=== PATIENT | male | born 1965 | race Caucasian/White ===

== ENCOUNTER 2022-01-06 10:49 | Emergency (ER) | payer MEDICAID ==
[~2022-01-06] VITALS: Ht 170.2 cm; Wt 64.0 kg
[~2022-01-06 10:49] MED LIST: ALBU18HF2 INH; BECL7.3A7 IH; DIVA-76 PO; KEP500T PO; TOPI200T16 PO
[2022-01-06 10:51] VITALS: BP 106/61
[2022-01-06] MEDS ORDERED: apixaban 5mg tablet PO STA (11:57)
[2022-01-06] MEDS ORDERED: Ivermectin 3mg tablet PO STA (11:59)
[2022-01-06] MEDS ORDERED: PERM60CR19 TOP (12:02)
[2022-01-06] MEDS ORDERED: APIX5TAB3 PO ×2 (12:02)
== END 2022-01-06 12:58 | disposition home or self-care (01) ==
LOC: ER 10:50
DX: I82.431 Acute embolism and thrombosis of right popliteal vein (principal); J44.9 Chronic obstructive pulmonary disease, unspecified; Z88.0 Allergy status to penicillin; Z88.8 Allergy status to other drugs, medicaments and biological substances
CPT/HCPCS: 93971; 99284

== ENCOUNTER 2022-02-08 23:43 | Inpatient (IN) | payer MEDICAID ==
[~2022-02-08] VITALS: Ht 170.2 cm; Wt 68.1 kg
[~2022-02-08 23:43] MED LIST changes: +APIX5TAB3 PO
[2022-02-09] VITALS (15 sets, daily range): BP systolic 94–131; BP diastolic 51–85
[2022-02-09] MEDS ORDERED: aspirin 81mg tab.chew PO ONE (01:05)
[2022-02-09] MEDS ORDERED: heparin 25,000 UNIT/250ml bag 250 ML IV SCH (01:10)
[2022-02-09] MEDS ORDERED: albuterol 2.5 MG/3 ML nebule NEB ONE (01:10)
[2022-02-09] MEDS ORDERED: heparin 10,000 units/1 ML INJ IV ONE ×2 (01:10→02:25)
[2022-02-09] MEDS ORDERED: methylPREDNISolone sod succ 125mg/2ml vial IV ONE (01:10)
[2022-02-09] MEDS ORDERED: iohexol 350MG/ML 100ml bottle IV ONE (01:16)
[2022-02-09] MEDS ORDERED: APIX5TAB3 PO (01:16)
[2022-02-09] MEDS ORDERED: ATOR20TA66 PO (01:16)
[2022-02-09 01:17] LABS: BASOPHILS # (AUTO) 0.1 X10'3 (0-0.2); EOSINOPHILS # (AUTO) 0.5 X10'3 (0-0.9); WHITE BLOOD COUNT 11.4 X10'3 (4.5-11.0)
[2022-02-09] MEDS ORDERED: BECL10.6 IH (01:18)
[2022-02-09 01:19] LABS: EOSINOPHILS % (AUTO) 4.1 % (0-6); LYMPHOCYTES # (AUTO) 1.6 X10'3 (1.1-4.8); MEAN CORPUSCULAR HEMOGLOBIN 12.4 PG (27.0-31.0); MEAN CORPUSCULAR HGB CONC 24.4 g/dL (33.0-36.5); MEAN CORPUSCULAR VOLUME 50.9 FL (78-98); MEAN PLATELET VOLUME 8.1 FL (7.4-10.4); MONOCYTES # (AUTO) 1.3 X10'3 (0-0.9); MONOCYTES % (AUTO) 11.2 % (2-12); NEUTROPHILS # (AUTO) 7.9 X10'3 (1.8-7.7); NEUTROPHILS % (AUTO) 69.7 % (42-75); PLATELET COUNT 733 X10'3 (140-440); RED BLOOD COUNT 2.84 X10'6 (4.70-6.10); RED CELL DISTRIBUTION WIDTH 25.8 % (11.5-14.5)
[2022-02-09 01:36] LABS: APTT 21 SECONDS (22-32)
[2022-02-09 01:37] LABS: ALANINE AMINOTRANSFERASE 161 U/L (12-78); ALBUMIN/GLOBULIN RATIO 0.7 (1.1-1.5); ALKALINE PHOSPHATASE 62 IU/L (46-116); ANION GAP 15 (8-16); ASPARTATE AMINO TRANSFERASE 89 U/L (10-37); BILIRUBIN,TOTAL 0.3 MG/DL (0.1-1.0); BLOOD UREA NITROGEN 6 MG/DL (7-18); BUN/CREATININE RATIO 6.3 (5.4-32.0); CHLORIDE 101 MMOL/L (99-107); CREATININE 0.96 MG/DL (0.60-1.10); GLUCOSE 130 MG/DL (70-104); POTASSIUM 3.6 MMOL/L (3.5-5.1); SODIUM 137 MMOL/L (135-145); TOTAL CARBON DIOXIDE 20.6 MMOL/L (24-32); TOTAL PROTEIN 7.3 G/DL (6.4-8.2); eGFR 80 ML/MIN
[2022-02-09 01:46] LABS: HEMATOCRIT 14.5 % (42.0-52.0); HEMOGLOBIN 3.5 g/dl (14.0-17.9)
[2022-02-09] MEDS ORDERED: heparin 10,000 units/1 ML INJ IV PRN (02:25)
[2022-02-09] MEDS: heparin 25,000 UNIT/250ml bag 250 ML IV SCH (02:25)
[2022-02-09] MEDS ORDERED: acetaminophen 650mg rectal suppository RC PRN (02:35)
[2022-02-09] MEDS ORDERED: mag hydrox/Alum hydrox/simeth 30ml oral suspension PO PRN (02:35)
[2022-02-09] MEDS ORDERED: naloxone 0.4 mg/ml inj IV PRN (02:35)
[2022-02-09] MEDS ORDERED: ondansetron/PF 4mg/2ml inj IV PRN (02:35)
[2022-02-09] MEDS ORDERED: ondansetron 4mg rapidly disintigrating tab PO PRN (02:35)
[2022-02-09] MEDS ORDERED: magnesium hydroxide 30ml (MOM) UD suspension PO PRN (02:35)
[2022-02-09] MEDS ORDERED: diphenhydrAMINE 25mg capsule PO PRN (02:35)
[2022-02-09] MEDS ORDERED: bisacodyl 10mg suppository rectal RC PRN (02:35)
[2022-02-09] MEDS ORDERED: acetaminophen 325mg tablet PO PRN ×2 (02:35)
[2022-02-09] MEDS ORDERED: HYDROcodone/acetaminophen 5mg/325mg tablet PO PRN (02:35)
[2022-02-09] MEDS ORDERED: diphenhydrAMINE 50 mg/ml inj IV PRN (02:35)
[2022-02-09] MEDS ORDERED: albuterol 2.5 MG/3 ML nebule NEB PRN (03:05)
[2022-02-09 03:27] LABS: ABSOLUTE RETICS # 80200 /CUMM (23000-93000); RETICULOCYTE % (AUTO) 2.8 % (0.5-1.5)
[2022-02-09] MEDS: normal saline 1000ml 1,000 ML IV SCH ×2 (03:31→14:14)
[2022-02-09] MEDS: ipratropium/albuterol 3ml nebule NEB SCH ×6 (03:32→22:51)
[2022-02-09 03:33] LABS: NUCLEATED RED BLOOD CELLS 3 /100WBC (0-0); TOTAL CELLS COUNTED 100
[2022-02-09 03:34] LABS: ANISOCYTOSIS 3+; ELLIPTOCYTES 1+; HYPOCHROMASIA 2+; MICROCYTOSIS 3+; PLATELET ESTIMATE INCREASED
[2022-02-09 03:35] LABS: ACANTHOCYTES FEW; POLYCHROMASIA FEW; SCHISTOCYTES FEW; TEAR DROP CELLS FEW
[2022-02-09 04:03] LABS: PHOSPHORUS 2.7 MG/DL (2.3-4.5)
[2022-02-09 04:10] LABS: MAGNESIUM 2.1 MG/DL (1.5-2.4)
[2022-02-09] MEDS ORDERED: normal saline 1000ml 1,000 ML IV ONE (05:45)
[2022-02-09 06:00] LABS: HEMOGLOBIN A1C < 3.8 % (4.5-6.2)
[2022-02-09] MEDS: docusate sod 100mg capsule PO SCH ×2 (08:00→20:00)
[2022-02-09] MEDS ORDERED: levoFLOXACIN-Levaquin 750MG/D5 150 ML IV SCH (08:00)
[2022-02-09] MEDS ORDERED: pantoprazole 40MG/NS 100ML BAG 100 ML IV SCH (08:00)
[2022-02-09] MEDS: methylPREDNISolone sod succ 125mg/2ml vial IV SCH ×2 (08:49→20:27)
[2022-02-09 09:36] LABS: OCCULT BLOOD STOOL NEGATIVE (Neg)
[2022-02-09 09:37] LABS: URINE AMPHETAMINE SCREEN NEGATIVE (Neg); URINE BARBITUATE SCREEN NEGATIVE (Neg); URINE BENZODIAZEPINES SCREEN NEGATIVE (Neg); URINE CANNABINOID SCREEN NEGATIVE (Neg); URINE COCAINE SCREEN NEGATIVE (Neg); URINE METHADONE SCREEN NEGATIVE (Neg); URINE OPIATE SCREEN NEGATIVE (Neg); URINE PHENCYCLIDINE SCREEN NEGATIVE (Neg)
[2022-02-09 09:41] LABS: BASOPHILS # (AUTO) 0.2 X10'3 (0-0.2); EOSINOPHILS # (AUTO) 0.1 X10'3 (0-0.9); MEAN PLATELET VOLUME 8.1 FL (7.4-10.4); NEUTROPHILS # (AUTO) 7.9 X10'3 (1.8-7.7)
[2022-02-09 09:43] LABS: EOSINOPHILS % (AUTO) 1.4 % (0-6); LYMPHOCYTES # (AUTO) 0.8 X10'3 (1.1-4.8); LYMPHOCYTES % (AUTO) 8.4 % (21-51); MEAN CORPUSCULAR HEMOGLOBIN 16.1 PG (27.0-31.0); MEAN CORPUSCULAR HGB CONC 27.5 g/dL (33.0-36.5); MEAN CORPUSCULAR VOLUME 58.5 FL (78-98); MONOCYTES # (AUTO) 0.3 X10'3 (0-0.9); MONOCYTES % (AUTO) 2.8 % (2-12); NEUTROPHILS % (AUTO) 85.4 % (42-75); PLATELET COUNT 575 X10'3 (140-440); RED BLOOD COUNT 3.38 X10'6 (4.70-6.10); RED CELL DISTRIBUTION WIDTH 35.4 % (11.5-14.5); WHITE BLOOD COUNT 9.2 X10'3 (4.5-11.0)
[2022-02-09 09:46] LABS: HEMOGLOBIN 5.4 g/dl (14.0-17.9)
[2022-02-09 09:55] LABS: % IRON SATURATION 3 % (11-46); IRON 11 UG/DL (53-167); TOTAL IRON BINDING CAPACITY 372 UG/DL (259-388)
[2022-02-09 10:09] LABS: HEMATOCRIT 18.1 % (42.0-52.0)
[2022-02-09 10:30] LABS: HIV ANTIBODY 1&2 RAPID NON-REACTIVE (Neg)
[2022-02-09 10:53] LABS: ANISOCYTOSIS 3+; HYPOCHROMASIA 3+; PLATELET ESTIMATE INCREASED; TEAR DROP CELLS 1+
[2022-02-09 10:54] LABS: ELLIPTOCYTES FEW; LARGE PLATELETS FEW; POLYCHROMASIA 1+; SCHISTOCYTES 1+
[2022-02-09 10:55] LABS: MICROCYTOSIS 3+
[2022-02-09] MEDS ORDERED: NS IV SCH (11:05)
[2022-02-09] MEDS ORDERED: OCTREOTIDE IV SCH (11:05)
[2022-02-09] MEDS ORDERED: octreotide 100mcg/1 ml ampule IV ONE (11:05)
[2022-02-09] MEDS ORDERED: OCTREOTIDE 1,250 MCG in NS 250ml IV.SOLN IV SCH (11:10)
--- NOTE | 2022-02-09 11:49 | NUR ---
TC TO YESSICA RANDALL FOR DIAMOND MONTANO (SIG OTHER). MESSAGE LEFT WITH [employer] THAT DIANNA IS HERE AT [facility] ER AND THE PHYSICAL FITNESS TEACHER WILL INFORM DIAMOND OF HIS PRESENCE IN THE ER.
--- NOTE | 2022-02-09 13:19 | NUR ---
TC FROM PATIENT'S , DIAMOND MONTANO, FOR CONDITION REPORT. ALL QUESTIONS ANSWERED.
[2022-02-09 15:08] LABS: MEAN PLATELET VOLUME 8.1 FL (7.4-10.4); PLATELET COUNT 591 X10'3 (140-440); WHITE BLOOD COUNT 8.7 X10'3 (4.5-11.0)
[2022-02-09 15:24] LABS: MEAN CORPUSCULAR HEMOGLOBIN 18.2 PG (27.0-31.0); MEAN CORPUSCULAR HGB CONC 29.4 g/dL (33.0-36.5); RED BLOOD COUNT 3.39 X10'6 (4.70-6.10); RED CELL DISTRIBUTION WIDTH 36.9 % (11.5-14.5)
[2022-02-09 15:29] LABS: HEMOGLOBIN 6.2 g/dl (14.0-17.9)
[2022-02-09] MEDS: pantoprazole 40MG/NS 100ML BAG 100 ML IV SCH ×2 (16:00→22:00)
[2022-02-09 20:18] LABS: MEAN PLATELET VOLUME 8.1 FL (7.4-10.4); PLATELET COUNT 619 X10'3 (140-440); WHITE BLOOD COUNT 8.3 X10'3 (4.5-11.0)
[2022-02-09] MEDS ORDERED: nicotine 21mg patch - 24 hr TD ONE (20:20)
--- NOTE | 2022-02-09 20:20 | NUR ---
Patient very aggitated says "Im going stir crazy, just laying here. I need to get a room or a smoke". Per Dr. Harman ok to order Nicotiene patch 21mg Q24hrs.
[2022-02-09] MEDS: morphine 2 MG/ML inj. syringe IV PRN (20:28)
[2022-02-09 20:46] LABS: HEMOGLOBIN 8.4 g/dl (14.0-17.9); MEAN CORPUSCULAR HEMOGLOBIN 18.9 PG (27.0-31.0); MEAN CORPUSCULAR HGB CONC 31.1 g/dL (33.0-36.5); MEAN CORPUSCULAR VOLUME 60.9 FL (78-98); RED BLOOD COUNT 4.44 X10'6 (4.70-6.10); RED CELL DISTRIBUTION WIDTH 37.4 % (11.5-14.5)
--- NOTE | 2022-02-09 20:55 | NUR ---
Patient continues to melt down, says he cannot continue to stare at the green, has no TV and no company.
[2022-02-09] MEDS ORDERED: temazepam 15mg capsule PO PRN (21:00)
--- NOTE | 2022-02-10 00:39 | NUR ---
Patient requesting breathing treatment, page sent.
[2022-02-10] MEDS: pantoprazole 40MG/NS 100ML BAG 100 ML IV SCH ×5 (01:00→21:00)
[2022-02-10] MEDS: heparin 25,000 UNIT/250ml bag 250 ML IV SCH (01:09)
[2022-02-10] MEDS: ipratropium/albuterol 3ml nebule NEB SCH ×6 (01:59→23:24)
--- NOTE | 2022-02-10 03:40 | NUR ---
Patient struggling, very SOB and wheezing. I ordered a stat CXR and cld Dr. Harman. Per MD get an ABG, CXR and give 40mg Laxix IV now.
[2022-02-10] MEDS: morphine 2 MG/ML inj. syringe IV PRN (03:49)
[2022-02-10] MEDS ORDERED: furosemide 40mg/4ml inj IV ONE (03:55)
[2022-02-10] MEDS ORDERED: morphine 2 MG/ML inj. syringe IV ONE (04:00)
[2022-02-10 04:12] LABS: ABG BASE EXCESS -7.4 mmol/L (-2.0-2.0); ABG HCO3 18.1 mmol/L (22.0-26.0); ABG OXYGEN SATURATION 84.1 % (94-97); ABG PCO2 (T) 36.4 mmHg (35.0-48.0); ABG PO2 (T) 53.3 mmHg (75.0-100.0); ALLEN'S TEST POSITIVE; FCOHb 1.1 % (0.0-3.9); FLOW 8 L/min; FMetHb 0.3 % (0.0-1.5); FO2Hb 82.9 % (94-97); TOTAL HEMOGLOBIN 9.1 G/dl (14.0-18.0)
--- NOTE | 2022-02-10 05:19 | NUR ---
Went to check on patient as SpO2 was down in the 70's, found he had taken O2 off. I counseled him on the importance of leaving his O2 on and advised him of what could happen in his O2 sat was too low. O2 back on and SpO2 is 98 now.
--- NOTE | 2022-02-10 07:00 | NUR ---
Pt sitting up in bed, pale, dry, RR 20s, SOB on NRB. Pt states he feels ok. Calling report to floor.
--- NOTE | 2022-02-10 07:40 | NUR ---
Went to pt to take him to the floor, and pt was cool, pale, diaphoretic, tachy 140s, on NRB. Pt states he doesn't feel any worse, just "takes a while to recover after he moves." Admitting doc paged.
--- NOTE | 2022-02-10 07:49 | NUR ---
Received patient report from ACOUSTIC INTELLIGENCE SPECIALIST
--- NOTE | 2022-02-10 07:50 | NUR ---
RT at bedside for breathing tx
[2022-02-10] MEDS: docusate sod 100mg capsule PO SCH ×2 (08:00→20:00)
[2022-02-10] MEDS ORDERED: furosemide 40mg/4ml inj IV SCH (08:00)
--- NOTE | 2022-02-10 08:05 | NUR ---
RT reports this pt is going to crash shortly. Recommends BiPAP or Intubation. Paged Rosalio.
--- NOTE | 2022-02-10 08:12 | NUR ---
Spoke to Dr Santamaria. He deferred repiratory assessment and treatment to Dr. Marroquin for possible BiPAP vs Intubation per RT recommendation.
[2022-02-10] MEDS ORDERED: albuterol 2.5 MG/3 ML nebule CONTNEB PRN ×2 (08:15)
[2022-02-10] MEDS ORDERED: ipratropium 0.5 MG/2.5ML nebule IH ONE (08:15)
--- NOTE | 2022-02-10 08:26 | NUR ---
RT placed pt on BiPAP 12/ Rate 12. No skin issues noted on bridge of nose before applying mask. on 60% O2 via mask.
[2022-02-10 08:35] LABS: ALANINE AMINOTRANSFERASE 137 U/L (12-78); ALBUMIN 3.3 G/DL (3.4-5.0); ALBUMIN/GLOBULIN RATIO 0.7 (1.1-1.5); ALKALINE PHOSPHATASE 72 IU/L (46-116); ANION GAP 10 (8-16); ASPARTATE AMINO TRANSFERASE 46 U/L (10-37); BLOOD UREA NITROGEN 8 MG/DL (7-18); BUN/CREATININE RATIO 7.6 (5.4-32.0); CALCIUM 8.1 MG/DL (8.5-10.1); CHLORIDE 107 MMOL/L (99-107); CHOL/HDL RATIO 2.7 (0.00-4.99); CHOLESTEROL 83 MG/DL (0-200); CREATINE KINASE 416 U/L (39-308); CREATININE 1.05 MG/DL (0.60-1.10); GLUCOSE 207 MG/DL (70-104); HDL CHOLESTEROL 31 MG/DL (35-60); LDL CHOLESTEROL 43 MG/DL (50-100); MAGNESIUM 2.4 MG/DL (1.5-2.4); POTASSIUM 4.4 MMOL/L (3.5-5.1); SODIUM 140 MMOL/L (135-145); TOTAL CARBON DIOXIDE 23.3 MMOL/L (24-32); TOTAL PROTEIN 8.2 G/DL (6.4-8.2); TRIGLYCERIDES 81 MG/DL (20-135); eGFR 73 ML/MIN
[2022-02-10] MEDS: levoFLOXACIN-Levaquin 500mg/D5 100 ML IV SCH (08:45)
[2022-02-10] MEDS: methylPREDNISolone sod succ 125mg/2ml vial IV SCH ×2 (08:45→20:06)
--- NOTE | 2022-02-10 08:49 | NUR ---
Pt resting more comfortably. Not diaphoretic. On BiPAP, tolerating procedure well. RR 24-26 down from 35-37. Sats 95% on 60% O2.
[2022-02-10] MEDS: cefepime 1GM/NS ADD-VANTAGE 100 ML IV SCH ×2 (09:00→16:46)
[2022-02-10] MEDS: metroNIDAZOLE-Flagyl 500mg/NS 100 ML IV SCH ×2 (09:00→16:27)
[2022-02-10] MEDS ORDERED: furosemide 10 MG/1 ML 10ml inj IV ONE (09:00)
[2022-02-10] MEDS ORDERED: metoprolol tartrate 1mg/ml inj IV ONE (09:05)
[2022-02-10 09:07] LABS: EOSINOPHILS % (AUTO) 0 % (0-6)
[2022-02-10 09:09] LABS: BASOPHILS % (AUTO) 0.3 % (0-1); LYMPHOCYTES # (AUTO) 0.6 X10'3 (1.1-4.8); LYMPHOCYTES % (AUTO) 3.4 % (21-51); MEAN PLATELET VOLUME 8.3 FL (7.4-10.4); MONOCYTES # (AUTO) 2.2 X10'3 (0-0.9); MONOCYTES % (AUTO) 12.6 % (2-12); NEUTROPHILS # (AUTO) 14.5 X10'3 (1.8-7.7); NEUTROPHILS % (AUTO) 83.7 % (42-75); PLATELET COUNT 694 X10'3 (140-440); RED BLOOD COUNT 4.68 X10'6 (4.70-6.10); WHITE BLOOD COUNT 17.3 X10'3 (4.5-11.0)
[2022-02-10 09:37] LABS: ABG BASE EXCESS -6.7 mmol/L (-2.0-2.0); ABG HCO3 19.1 mmol/L (22.0-26.0); ABG OXYGEN SATURATION 94.6 % (94-97); ABG PCO2 (T) 39.1 mmHg (35.0-48.0); ABG PO2 (T) 77.9 mmHg (75.0-100.0); ALLEN'S TEST POSITIVE; FCOHb 0.8 % (0.0-3.9); FMetHb 0.2 % (0.0-1.5); FO2Hb 93.7 % (94-97); RESPIRATORY RATE 12 b/min; TOTAL HEMOGLOBIN 9.3 G/dl (14.0-18.0)
[2022-02-10 09:56] LABS: HEMATOCRIT 28.4 % (42.0-52.0); HEMOGLOBIN 8.5 g/dl (14.0-17.9); MEAN CORPUSCULAR HEMOGLOBIN 18.4 PG (27.0-31.0); MEAN CORPUSCULAR HGB CONC 29.8 g/dL (33.0-36.5); MEAN CORPUSCULAR VOLUME 61.9 FL (78-98); RED CELL DISTRIBUTION WIDTH 36.3 % (11.5-14.5)
--- NOTE | 2022-02-10 10:20 | NUR ---
Call out to explosives truck driver to clarify order for 3 antbiotics. Pt already received Levquin 500mg, and now has Vanco, Flagyl and cefepime ordered.
--- NOTE | 2022-02-10 10:31 | NUR ---
Pt states BiPAP machine is making it hard to breathe and wants it off. Will page RT
--- NOTE | 2022-02-10 10:39 | NUR ---
Spoke to telecommunications field engineer. Will hold Maxipime and give Vancomycin and Flagyl
[2022-02-10] MEDS: vancomycin/NS 1 GM ADD-VANTAGE 250 ML IV SCH ×2 (10:46→23:11)
[2022-02-10] MEDS ORDERED: morphine 2 MG/ML inj. syringe IV PRN (11:00)
[2022-02-10] MEDS ORDERED: potassium Cl 20mEq/100mL bag 100 ML IV PRN (11:00)
[2022-02-10] MEDS ORDERED: ipratropium/albuterol 3ml nebule NEB SCH (11:00)
[2022-02-10] MEDS ORDERED: magnesium 4gm in 100ml NS 100 ML IV PRN (11:00)
[2022-02-10] MEDS ORDERED: acetaminophen 325mg tablet PO PRN ×2 (11:00)
[2022-02-10] MEDS ORDERED: ipratropium/albuterol 3ml nebule NEB PRN (11:00)
[2022-02-10] MEDS ORDERED: potassium CL 10mEq/100ml bag 100 ML IV PRN (11:00)
[2022-02-10] MEDS ORDERED: magnesium 2GM in 50ml NS 50 ML IV PRN (11:00)
[2022-02-10] MEDS ORDERED: potassium Cl 20 mEq SR tablet PO PRN ×2 (11:00)
[2022-02-10] MEDS ORDERED: ondansetron/PF 4mg/2ml inj IV PRN (11:00)
--- NOTE | 2022-02-10 11:37 | NUR ---
Pt resting comfortably, no apparent distress or needs at this time. On BiPAP. 2 L NS started for Lactate of 4 with verbal orders.
--- NOTE | 2022-02-10 12:09 | NUR ---
Flagyl complete, Pt resting comfortably, denies pain or needs at this time. Updated on wait for bed. Stable on BiPAP.
[2022-02-10 12:14] LABS: NUCLEATED RED BLOOD CELLS 6 /100WBC (0-0); TOTAL CELLS COUNTED 100
[2022-02-10 12:15] LABS: GIANT PLATELET FEW; LARGE PLATELETS FEW; PLATELET ESTIMATE INCREASED; POIKILOCYTOSIS 2+
[2022-02-10 12:16] LABS: ANISOCYTOSIS 3+; HYPOCHROMASIA 1+; MICROCYTOSIS 2+; POLYCHROMASIA 2+; SCHISTOCYTES 1+
[2022-02-10 12:17] LABS: ACANTHOCYTES FEW; TEAR DROP CELLS 1+
[2022-02-10] MEDS: K and/or MAG REPLACEMENT MC SCH (12:26)
[2022-02-10] MEDS ORDERED: dexmedetomidin/NS 400mcg/100ml 100 ML IV SCH (12:50)
[2022-02-10] MEDS: propranolol 10mg tablet PO SCH ×2 (13:00→20:10)
[2022-02-10] MEDS: dexmedetomidine/D5W 100mL 100 ML IV SCH (13:14)
--- NOTE | 2022-02-10 13:15 | NUR ---
Pt sleeping, no apparent distress or needs at this time.
[2022-02-10 13:47] LABS: CLARITY,URINE CLEAR (Clear); COLOR,URINE YELLOW (Yellow); GLUCOSE, URINE NEGATIVE (Neg); KETONES,URINE NEGATIVE (Neg); LEUKOCYTE ESTERASE ,URINE NEGATIVE (Neg); NITRITES, URINE NEGATIVE (Neg); OCCULT BLOOD,URINE NEGATIVE (Neg); PH,URINE 5.5 (4.8-8.0); PROTEIN,URINE NEGATIVE (Neg); UROBILINOGEN,URINE 0.2 E.U/dL (0.2-1.0)
[2022-02-10 14:00] LABS: UA COLLECTION TYPE URINAL
--- NOTE | 2022-02-10 14:30 | NUR ---
Pt sleeping, no apparent distress or needs at this time.
--- NOTE | 2022-02-10 15:30 | NUR ---
CT called. has 2 pts ahead of him, will come get him shortly.
--- NOTE | 2022-02-10 16:22 | NUR ---
Called ICU, bed is being cleaned. Will notify us when ready.
[2022-02-10] MEDS ORDERED: iohexol 300mg/ml 100ml inj. ONE (16:34)
--- NOTE | 2022-02-10 16:47 | NUR ---
Pt sleeping, no apparent distress or needs at this time. On BiPAP 16/5 @ 50% O2.
--- NOTE | 2022-02-10 17:05 | NUR ---
Report given to Fabiola in ICU. PT to go to CT enroute to ICU.
--- NOTE | 2022-02-10 17:54 | NUR ---
Received pt. from ED via peewee. Pt. hooked up to monitor, call light and warm blanket provided. Will give report to DAVID RN.
[2022-02-10 17:55] VITALS: BP 110/80
--- NOTE | 2022-02-10 18:19 | NUR ---
Problems reprioritized. Patient report given, questions answered & plan of care reviewed with Fausto JEAN-BAPTISTE.
[2022-02-10 19:00] VITALS: BP 111/82
[2022-02-10 19:23] LABS: MEAN CORPUSCULAR HEMOGLOBIN 18.9 PG (27.0-31.0)
[2022-02-10 19:24] LABS: RED BLOOD COUNT 3.94 X10'6 (4.70-6.10); WHITE BLOOD COUNT 10.4 X10'3 (4.5-11.0)
[2022-02-10] MEDS: furosemide 10 MG/1 ML 10ml inj IV SCH (20:06)
[2022-02-10 20:10] LABS: HEMATOCRIT 23.9 % (42.0-52.0); HEMOGLOBIN 7.3 g/dl (14.0-17.9); MEAN CORPUSCULAR VOLUME 61.5 FL (78-98)
[2022-02-10 20:11] LABS: MEAN CORPUSCULAR HGB CONC 30.7 g/dL (33.0-36.5); RED CELL DISTRIBUTION WIDTH 37.5 % (11.5-14.5)
[2022-02-10 20:12] LABS: PLATELET COUNT 410 X10'3 (140-440)
[2022-02-10 21:00] VITALS: BP 114/80
--- NOTE | 2022-02-10 21:10 | NUR ---
Pt sent to CT with charge nurse and RT.
[2022-02-10 22:00] VITALS: BP 108/72
--- NOTE | 2022-02-10 22:22 | NUR ---
Called Dr Gonzales with H/H results,vital signs, and pt assessment. No blood transfusion or new orders at this time. Will re-assess at next H/H check.
[2022-02-10 23:00] VITALS: BP 100/70
[2022-02-11] VITALS (15 sets, daily range): BP systolic 90–115; BP diastolic 59–79
[2022-02-11] MEDS: cefepime 1GM/NS ADD-VANTAGE 100 ML IV SCH ×2 (00:42→07:21)
[2022-02-11] MEDS: pantoprazole 40MG/NS 100ML BAG 100 ML IV SCH ×5 (01:25→21:00)
[2022-02-11] MEDS: metroNIDAZOLE-Flagyl 500mg/NS 100 ML IV SCH ×3 (01:25→18:57)
[2022-02-11] MEDS: ipratropium/albuterol 3ml nebule NEB SCH ×6 (02:48→23:45)
[2022-02-11 02:50] LABS: MEAN PLATELET VOLUME 7.9 FL (7.4-10.4)
[2022-02-11 02:51] LABS: PLATELET COUNT 350 X10'3 (140-440); WHITE BLOOD COUNT 11.8 X10'3 (4.5-11.0)
[2022-02-11 03:36] LABS: HEMOGLOBIN 7.5 g/dl (14.0-17.9); RED BLOOD COUNT 4.05 X10'6 (4.70-6.10)
[2022-02-11 03:37] LABS: HEMATOCRIT 24.9 % (42.0-52.0); MEAN CORPUSCULAR HEMOGLOBIN 18.5 PG (27.0-31.0); MEAN CORPUSCULAR HGB CONC 30.1 g/dL (33.0-36.5); MEAN CORPUSCULAR VOLUME 61.5 FL (78-98); RED CELL DISTRIBUTION WIDTH 37.4 % (11.5-14.5)
[2022-02-11 06:09] LABS: PLATELET COUNT 337 X10'3 (140-440); WHITE BLOOD COUNT 11.8 X10'3 (4.5-11.0)
[2022-02-11 06:40] LABS: ALANINE AMINOTRANSFERASE 110 U/L (12-78); ALBUMIN 2.8 G/DL (3.4-5.0); ALBUMIN/GLOBULIN RATIO 0.7 (1.1-1.5); ALKALINE PHOSPHATASE 56 IU/L (46-116); ANION GAP 15 (8-16); ASPARTATE AMINO TRANSFERASE 28 U/L (10-37); BILIRUBIN,TOTAL 0.7 MG/DL (0.1-1.0); BLOOD UREA NITROGEN 20 MG/DL (7-18); BUN/CREATININE RATIO 15.9 (5.4-32.0); CALCIUM 8.2 MG/DL (8.5-10.1); CHLORIDE 107 MMOL/L (99-107); CREATININE 1.26 MG/DL (0.60-1.10); GLUCOSE 181 MG/DL (70-104); MAGNESIUM 2.2 MG/DL (1.5-2.4); PHOSPHORUS 3.6 MG/DL (2.3-4.5); POTASSIUM 4.2 MMOL/L (3.5-5.1); SODIUM 143 MMOL/L (135-145); TOTAL PROTEIN 7.1 G/DL (6.4-8.2); eGFR 59 ML/MIN
[2022-02-11] MEDS: propranolol 10mg tablet PO SCH ×3 (07:23→20:01)
[2022-02-11] MEDS: docusate sod 100mg capsule PO SCH ×2 (07:23→19:45)
[2022-02-11] MEDS: methylPREDNISolone sod succ 125mg/2ml vial IV SCH ×2 (07:23→19:44)
[2022-02-11] MEDS: furosemide 10 MG/1 ML 10ml inj IV SCH (07:24)
[2022-02-11] MEDS: K and/or MAG REPLACEMENT MC SCH (07:27)
--- NOTE | 2022-02-11 07:34 | NUR ---
Dr. Buenrostro in to see pt. Stated pt. could probably be transferred out of ICU once Precedex is weaned off.
[2022-02-11 07:59] LABS: HEMOGLOBIN 7.7 g/dl (14.0-17.9); RED BLOOD COUNT 4.16 X10'6 (4.70-6.10)
[2022-02-11 08:00] LABS: HEMATOCRIT 25.8 % (42.0-52.0); MEAN CORPUSCULAR HEMOGLOBIN 18.6 PG (27.0-31.0); MEAN CORPUSCULAR HGB CONC 29.9 g/dL (33.0-36.5); MEAN CORPUSCULAR VOLUME 62.2 FL (78-98); RED CELL DISTRIBUTION WIDTH 37.4 % (11.5-14.5)
[2022-02-11 08:17] LABS: ANISOCYTOSIS 3+; MICROCYTOSIS 2+; NUCLEATED RED BLOOD CELLS 10 /100WBC (0-0); PLATELET ESTIMATE NORMAL; TOTAL CELLS COUNTED 100
[2022-02-11 08:18] LABS: ELLIPTOCYTES 1+; HYPOCHROMASIA 2+; LARGE PLATELETS FEW
[2022-02-11 08:19] LABS: TEAR DROP CELLS 1+
[2022-02-11 08:21] LABS: SCHISTOCYTES FEW
[2022-02-11] MEDS: dexmedetomidine/D5W 100mL 100 ML IV SCH (08:30)
--- NOTE | 2022-02-11 08:41 | NUR ---
Priyanka Jorge stated pt. does not have to remain in isolation for a HX. of bed bugs.
[2022-02-11] MEDS: levoFLOXACIN-Levaquin 500mg/D5 100 ML IV SCH (09:10)
[2022-02-11] MEDS: vancomycin/NS 1 GM ADD-VANTAGE 250 ML IV SCH ×2 (10:06→22:52)
[2022-02-11] MEDS: octreotide inj. 500 MCG in normal saline 100ml IV soln 97.5 ML IV SCH (10:55)
[2022-02-11 11:27] LABS: MEAN PLATELET VOLUME 8.2 FL (7.4-10.4); PLATELET COUNT 333 X10'3 (140-440); WHITE BLOOD COUNT 14.9 X10'3 (4.5-11.0)
[2022-02-11 11:52] LABS: HEMOGLOBIN 7.8 g/dl (14.0-17.9); RED BLOOD COUNT 4.23 X10'6 (4.70-6.10)
[2022-02-11 11:53] LABS: MEAN CORPUSCULAR HEMOGLOBIN 18.4 PG (27.0-31.0); MEAN CORPUSCULAR HGB CONC 29.9 g/dL (33.0-36.5); MEAN CORPUSCULAR VOLUME 61.5 FL (78-98); RED CELL DISTRIBUTION WIDTH 37.5 % (11.5-14.5)
--- NOTE | 2022-02-11 12:06 | NUR ---
Pt. transferred to 3012A in stable condition with all belongings. Anna JEAN-BAPTISTE and Isidro Lucas RN aware of pt. arriving.
[2022-02-11] MEDS ORDERED: midazolam 1 mg/ML 2ml injection ONE (13:08)
[2022-02-11] MEDS ORDERED: LIDOCAINE 1% w/preservative (10 MG/ML) inj. 10mL VIAL ONE (13:08)
[2022-02-11] MEDS ORDERED: fentaNYL/PF 50MCG/1 ML 2ML syringe ONE (13:09)
[2022-02-11] MEDS ORDERED: heparin 1,000 UNITS/NS 500ml 500 ML ONE (13:13)
[2022-02-11] MEDS ORDERED: iohexol 300 MG/1 ML 50ml polymer ONE (13:13)
[2022-02-11] MEDS: multivitamins, therapeutics tablet PO SCH (15:34)
[2022-02-11] MEDS: thiamine 100mg tablet PO SCH ×2 (15:34→19:45)
[2022-02-11] MEDS: folic acid 1mg tablet PO SCH (15:34)
[2022-02-11] MEDS: dextrose 5%-water 1,000 ML IV SCH (17:45)
[2022-02-11 18:18] LABS: HEMOGLOBIN 8.1 g/dl (14.0-17.9); MEAN CORPUSCULAR HGB CONC 27.9 g/dL (33.0-36.5); MEAN CORPUSCULAR VOLUME 64.6 FL (78-98); MEAN PLATELET VOLUME 8.1 FL (7.4-10.4); PLATELET COUNT 321 X10'3 (140-440); RED BLOOD COUNT 4.49 X10'6 (4.70-6.10); RED CELL DISTRIBUTION WIDTH 38.3 % (11.5-14.5); WHITE BLOOD COUNT 14.7 X10'3 (4.5-11.0)
--- NOTE | 2022-02-11 18:57 | NUR ---
Problems reprioritized. Patient report given, questions answered & plan of care reviewed with Soniya JEAN-BAPTISTE, patient stable at transfer of care.
[2022-02-11] MEDS: furosemide 40mg/4ml inj IV SCH (19:44)
[2022-02-11 20:36] LABS: HEMOGLOBIN 8.3 g/dl (14.0-17.9); PLATELET COUNT 307 X10'3 (140-440); RED CELL DISTRIBUTION WIDTH 38.2 % (11.5-14.5); WHITE BLOOD COUNT 14.3 X10'3 (4.5-11.0)
[2022-02-11 21:09] LABS: HEMATOCRIT 27.7 % (42.0-52.0); MEAN CORPUSCULAR HEMOGLOBIN 18.5 PG (27.0-31.0); MEAN CORPUSCULAR VOLUME 61.8 FL (78-98); RED BLOOD COUNT 4.48 X10'6 (4.70-6.10)
[2022-02-11] MEDS ORDERED: VANCOMYCIN LEVEL IV ONE (21:30)
[2022-02-12 00:19] VITALS: BP 111/74
[2022-02-12] MEDS: pantoprazole 40MG/NS 100ML BAG 100 ML IV SCH ×5 (01:00→21:16)
[2022-02-12 02:00] VITALS: BP 115/78
[2022-02-12] MEDS: dextrose 5%-water 1,000 ML IV SCH ×2 (02:19→09:06)
[2022-02-12] MEDS: ipratropium/albuterol 3ml nebule NEB SCH ×5 (03:18→20:03)
[2022-02-12] MEDS: dexmedetomidine/D5W 100mL 100 ML IV SCH (04:05)
--- NOTE | 2022-02-12 04:05 | NUR ---
This is a 56-year-old male, admitted 02/09/2022, day 3 of hospitalization, full code, Allergies to PCN, Phenytoin, no restraints, no isolation. Patient presents with history of multiple medical problems including chronic alcoholism, history of seizure disorder, COPD, hypertension, diastolic CHF ejection fraction 65% 2015, diagnosed with left lower extremity DVT January 06, 2022, chronic hepatitis, dyslipidemia, presented today to emergency department chief complaint shortness of breath; in addition this is a patient who was brought in by EMS complaining of shortness of breath on exertion over the last couple weeks as well as difficulty walking due to bilateral leg swelling. Patient was recently seen for a DVT but did not fill his medications. Patient reports that soon as he is able to get into his primary care physician is 2 months. Patient has been using his inhalers and complains of a productive cough that is yellow in color.Patient denies any other associated symptoms at this time. Patient denies any other alleviating or exacerbating factors. In emergency department patient was evaluated by ER doctor was diagnosed with severe anemia hemoglobin 3.5, COPD, right lower extremity DVT, and decision was made to admit patient for further evaluation and treatment. Currently, pt is AAO times 4, moves all extremities, follows all commands, notable generalized weakness. Afebrile. Telemonitor #10, SR 88, 115/78, weak pulses, trace edema. IVF infusing Rt arm and left arm. RR 16 PO 98% 3L NC, Pt desaturates to 82% when O2 is off. Be mindful. Coarse, diminished, equal symmetrical non labored. Noted chronic wet cough. Hypoactive bowel sounds, rounds abdomen, denies nausea, NPO except ICE chips. Pt remains on Protonix gtt at 20 ml's/hr and Sandostatin gtt at 5 ml's/hr, and D at 75ml's/hr. NO BM. Pt received Lasix 40 mg, voided approx 2000 ml's CYU. Skin is rough, not well kept. no open areas noted. Pt remains safe, continue to monitor. Addendum: 02/12/22 at 0616 by Moshe Montelongo RN Vanco Level 21.1, called Pharmacy reported result. Pharmacist stated to continue with this dose. Vanco Given.
[2022-02-12 06:00] VITALS: BP 121/84
[2022-02-12] MEDS: octreotide inj. 500 MCG in normal saline 100ml IV soln 97.5 ML IV SCH (06:17)
[2022-02-12 07:00] LABS: HEMOGLOBIN 7.9 g/dl (14.0-17.9)
[2022-02-12 07:03] LABS: MEAN PLATELET VOLUME 8.3 FL (7.4-10.4); PLATELET COUNT 273 X10'3 (140-440); WHITE BLOOD COUNT 12.6 X10'3 (4.5-11.0)
[2022-02-12 07:22] LABS: ALANINE AMINOTRANSFERASE 83 U/L (12-78); ALBUMIN 2.6 G/DL (3.4-5.0); ALBUMIN/GLOBULIN RATIO 0.7 (1.1-1.5); ALKALINE PHOSPHATASE 52 IU/L (46-116); ANION GAP 10 (8-16); ASPARTATE AMINO TRANSFERASE 34 U/L (10-37); BLOOD UREA NITROGEN 38 MG/DL (7-18); BUN/CREATININE RATIO 26.6 (5.4-32.0); CALCIUM 8.1 MG/DL (8.5-10.1); CHLORIDE 108 MMOL/L (99-107); CREATININE 1.43 MG/DL (0.60-1.10); GLUCOSE 165 MG/DL (70-104); MAGNESIUM 2.2 MG/DL (1.5-2.4); PHOSPHORUS 3.7 MG/DL (2.3-4.5); SODIUM 142 MMOL/L (135-145); TOTAL CARBON DIOXIDE 23.6 MMOL/L (24-32); TOTAL PROTEIN 6.5 G/DL (6.4-8.2); eGFR 51 ML/MIN
--- NOTE | 2022-02-12 07:30 | NUR ---
Paged Dr. Martinez regarding if patient is having a GI study today and when he can eat. PAGER ID: [phone] MESSAGE: [id number], Nayely Moura. Pt has been NPO for a few days, I was told he was going for a possible EGD? But when NOC nurse called GI lab last night they knew nothing about it. Is this the plan or can pt eat? Anna [facility] 2019.
[2022-02-12 07:58] LABS: HEMATOCRIT 26.1 % (42.0-52.0); MEAN CORPUSCULAR HEMOGLOBIN 18.6 PG (27.0-31.0); MEAN CORPUSCULAR HGB CONC 30.3 g/dL (33.0-36.5); MEAN CORPUSCULAR VOLUME 61.4 FL (78-98); RED BLOOD COUNT 4.26 X10'6 (4.70-6.10); RED CELL DISTRIBUTION WIDTH 38.8 % (11.5-14.5)
[2022-02-12] MEDS: K and/or MAG REPLACEMENT MC SCH (08:00)
[2022-02-12 08:01] LABS: NUCLEATED RED BLOOD CELLS 8 /100WBC (0-0); TOTAL CELLS COUNTED 100
[2022-02-12 08:02] LABS: ANISOCYTOSIS 3+; MICROCYTOSIS 2+; PLATELET ESTIMATE NORMAL; TEAR DROP CELLS 2+
[2022-02-12 08:03] LABS: BURR CELLS 1+; HYPOCHROMASIA 2+; POLYCHROMASIA FEW
[2022-02-12 08:04] LABS: ELLIPTOCYTES 1+
[2022-02-12 08:05] LABS: SCHISTOCYTES FEW
[2022-02-12 08:06] LABS: SPHEROCYTES FEW
[2022-02-12] MEDS: docusate sod 100mg capsule PO SCH ×2 (08:30→21:15)
[2022-02-12] MEDS: thiamine 100mg tablet PO SCH ×2 (08:31→21:15)
[2022-02-12] MEDS: folic acid 1mg tablet PO SCH (08:31)
[2022-02-12] MEDS: propranolol 10mg tablet PO SCH ×3 (08:31→21:15)
[2022-02-12] MEDS: multivitamins, therapeutics tablet PO SCH (08:31)
[2022-02-12] MEDS: furosemide 40mg/4ml inj IV SCH ×2 (08:45→21:15)
[2022-02-12] MEDS: metroNIDAZOLE-Flagyl 500mg/NS 100 ML IV SCH ×3 (08:45→17:45)
[2022-02-12] MEDS: methylPREDNISolone sod succ 125mg/2ml vial IV SCH ×2 (08:45→21:21)
[2022-02-12 11:00] VITALS: BP 99/73
[2022-02-12] MEDS ORDERED: bisacodyl 10mg suppository rectal RC PRN (11:00)
[2022-02-12] MEDS: levoFLOXACIN-Levaquin 500mg/D5 100 ML IV SCH (11:39)
--- NOTE | 2022-02-12 13:49 | NUR ---
Paged Dr. Martinez regarding whether if he will get the EGD done today. PAGER ID: [phone] MESSAGE: [id number], Nayely Moura. Pt is very emotional and crying wanting to know if he is getting this test done. He is starving and wants answers. Anna [facility] [id number].
[2022-02-12] MEDS: vancomycin inj. 750 MG in normal saline 250ml IV soln 250 ML IV SCH (13:58)
[2022-02-12 15:00] VITALS: BP 112/82
--- NOTE | 2022-02-12 18:31 | NUR ---
Problems reprioritized. Patient report given, questions answered & plan of care reviewed with JERILYN Tillman.
[2022-02-12 22:00] VITALS: BP 167/80
[2022-02-13] VITALS (12 sets, daily range): BP systolic 97–139; BP diastolic 58–78
[2022-02-13] MEDS: ipratropium/albuterol 3ml nebule NEB SCH ×7 (00:04→23:14)
[2022-02-13] MEDS: pantoprazole 40MG/NS 100ML BAG 100 ML IV SCH ×5 (01:00→21:21)
[2022-02-13] MEDS: metroNIDAZOLE-Flagyl 500mg/NS 100 ML IV SCH ×3 (01:14→16:08)
[2022-02-13] MEDS: vancomycin inj. 750 MG in normal saline 250ml IV soln 250 ML IV SCH ×2 (01:14→12:51)
[2022-02-13] MEDS: octreotide inj. 500 MCG in normal saline 100ml IV soln 97.5 ML IV SCH ×2 (02:26→22:32)
[2022-02-13] MEDS: dextrose 5%-water 1,000 ML IV SCH ×2 (05:52→19:00)
[2022-02-13 05:58] LABS: EOSINOPHILS % (AUTO) 0 % (0-6); MONOCYTES # (AUTO) 0.6 X10'3 (0-0.9); PLATELET COUNT 253 X10'3 (140-440); WHITE BLOOD COUNT 13.8 X10'3 (4.5-11.0)
[2022-02-13 06:01] LABS: BASOPHILS % (AUTO) 0.2 % (0-1); HEMATOCRIT 28.4 % (42.0-52.0); LYMPHOCYTES % (AUTO) 7.2 % (21-51); MEAN CORPUSCULAR HEMOGLOBIN 17.9 PG (27.0-31.0); MEAN CORPUSCULAR HGB CONC 27.6 g/dL (33.0-36.5); MEAN CORPUSCULAR VOLUME 64.6 FL (78-98); MONOCYTES % (AUTO) 4.6 % (2-12); NEUTROPHILS # (AUTO) 12.1 X10'3 (1.8-7.7); RED BLOOD COUNT 4.39 X10'6 (4.70-6.10); RED CELL DISTRIBUTION WIDTH 39.6 % (11.5-14.5)
[2022-02-13 06:24] LABS: ALANINE AMINOTRANSFERASE 54 U/L (12-78); ALBUMIN 2.5 G/DL (3.4-5.0); ALBUMIN/GLOBULIN RATIO 0.6 (1.1-1.5); ALKALINE PHOSPHATASE 45 IU/L (46-116); ANION GAP 12 (8-16); ASPARTATE AMINO TRANSFERASE 30 U/L (10-37); BILIRUBIN,TOTAL 1.1 MG/DL (0.1-1.0); BLOOD UREA NITROGEN 38 MG/DL (7-18); BUN/CREATININE RATIO 31.1 (5.4-32.0); CALCIUM 7.7 MG/DL (8.5-10.1); CHLORIDE 101 MMOL/L (99-107); CREATININE 1.22 MG/DL (0.60-1.10); GLUCOSE 176 MG/DL (70-104); MAGNESIUM 2.2 MG/DL (1.5-2.4); POTASSIUM 3.5 MMOL/L (3.5-5.1); SODIUM 138 MMOL/L (135-145); TOTAL CARBON DIOXIDE 24.9 MMOL/L (24-32); TOTAL PROTEIN 6.4 G/DL (6.4-8.2); eGFR 61 ML/MIN
[2022-02-13 06:30] LABS: HEMOGLOBIN 8.2 g/dl (14.0-17.9)
[2022-02-13 06:53] LABS: ANISOCYTOSIS 3+; MICROCYTOSIS 2+; NUCLEATED RED BLOOD CELLS 3 /100WBC (0-0); PLATELET ESTIMATE NORMAL; TOTAL CELLS COUNTED 100
[2022-02-13 06:54] LABS: BURR CELLS 1+; SPHEROCYTES FEW; TARGET CELLS FEW
[2022-02-13 06:55] LABS: HYPOCHROMASIA 1+; POLYCHROMASIA FEW; SCHISTOCYTES FEW; TEAR DROP CELLS 1+
[2022-02-13 06:56] LABS: ELLIPTOCYTES FEW
[2022-02-13] MEDS: furosemide 40mg/4ml inj IV SCH ×2 (07:37→20:07)
[2022-02-13] MEDS: methylPREDNISolone sod succ 125mg/2ml vial IV SCH ×2 (07:37→20:04)
[2022-02-13] MEDS: levoFLOXACIN-Levaquin 500mg/D5 100 ML IV SCH (07:50)
[2022-02-13] MEDS: folic acid 1mg tablet PO SCH (07:56)
[2022-02-13] MEDS: propranolol 10mg tablet PO SCH ×3 (07:56→20:07)
[2022-02-13] MEDS: docusate sod 100mg capsule PO SCH ×2 (07:56→20:04)
[2022-02-13] MEDS: thiamine 100mg tablet PO SCH ×2 (07:56→20:04)
[2022-02-13] MEDS: multivitamins, therapeutics tablet PO SCH (07:57)
[2022-02-13] MEDS: K and/or MAG REPLACEMENT MC SCH (08:00)
[2022-02-13] MEDS ORDERED: VANCOMYCIN LEVEL IV ONE (11:30)
[2022-02-13] MEDS ORDERED: fentaNYL/PF 50MCG/1 ML 2ML syringe ONE (17:07)
[2022-02-13] MEDS ORDERED: LIDOcaine Viscous 15ml cup ONE (17:08)
[2022-02-13] MEDS ORDERED: MIDAZolam 1 MG/ML 5ML VIAL ONE (17:08)
--- NOTE | 2022-02-13 18:45 | NUR ---
Problems reprioritized. Patient report given, questions answered & plan of care reviewed with JERILYN Tillman.
--- NOTE | 2022-02-13 18:58 | NUR ---
Patient in room PCU 3012. I have received report from GAIL JEAN-BAPTISTE and had the opportunity to ask questions and assume patient care.
[2022-02-13] MEDS ORDERED: PEG 3350/Na sulf,bicarb,Cl/KCl oral sol 4 liter bottle PO SCH (19:00)
[2022-02-14] MEDS: metroNIDAZOLE-Flagyl 500mg/NS 100 ML IV SCH ×2 (00:24→08:00)
[2022-02-14] MEDS: vancomycin inj. 750 MG in normal saline 250ml IV soln 250 ML IV SCH ×3 (00:25→23:41)
[2022-02-14 02:00] VITALS: BP 116/80
[2022-02-14] MEDS: pantoprazole 40MG/NS 100ML BAG 100 ML IV SCH ×2 (02:20→06:00)
[2022-02-14] MEDS: ipratropium/albuterol 3ml nebule NEB SCH ×6 (02:41→22:47)
--- NOTE | 2022-02-14 05:52 | NUR ---
PATIENT FELL WHILE TRYING TO SIT ON THE BEDSIDE COMMODE. NO INJURIES OBSERVED AND PATIENT STATES HE FELL ON HIS BOTTOM. VITAL SIGNS BP 128/75, T 97.7, RR 17, O2 98 ON 2L, HR 95, NO PAIN. PATIENT BACK IN BED RESTING WITH NO APPARENT DISTRESS. WILL CONTINUE TO MONITOR.
[2022-02-14 05:57] VITALS: BP 128/75
--- NOTE | 2022-02-14 05:58 | NUR ---
DOCTOR KITTRICK, CHARGE NURSE AND EKG MONITOR TECH NOTIFIED.
--- NOTE | 2022-02-14 06:56 | NUR ---
Problems reprioritized. Patient report given, questions answered & plan of care reviewed with NAHUN JEAN-BAPTISTE.
[2022-02-14 06:59] LABS: BASOPHILS % (AUTO) 0.1 % (0-1); EOSINOPHILS % (AUTO) 0 % (0-6); HEMATOCRIT 31.9 % (42.0-52.0); LYMPHOCYTES # (AUTO) 1.3 X10'3 (1.1-4.8); LYMPHOCYTES % (AUTO) 7.6 % (21-51); MEAN CORPUSCULAR HGB CONC 28.2 g/dL (33.0-36.5); MEAN CORPUSCULAR VOLUME 63.7 FL (78-98); MEAN PLATELET VOLUME 8.1 FL (7.4-10.4); MONOCYTES % (AUTO) 5.8 % (2-12); NEUTROPHILS # (AUTO) 14.6 X10'3 (1.8-7.7); NEUTROPHILS % (AUTO) 86.5 % (42-75); PLATELET COUNT 229 X10'3 (140-440); RED BLOOD COUNT 5.02 X10'6 (4.70-6.10); RED CELL DISTRIBUTION WIDTH 40.1 % (11.5-14.5); WHITE BLOOD COUNT 16.9 X10'3 (4.5-11.0)
[2022-02-14 07:13] LABS: ANISOCYTOSIS 3+; MICROCYTOSIS 2+; NUCLEATED RED BLOOD CELLS 2 /100WBC (0-0); PLATELET ESTIMATE NORMAL; TOTAL CELLS COUNTED 100
[2022-02-14 07:14] LABS: HYPOCHROMASIA 2+; POLYCHROMASIA 1+; TARGET CELLS 1+
[2022-02-14 07:15] LABS: SCHISTOCYTES FEW; TEAR DROP CELLS 1+
[2022-02-14 07:31] LABS: ALANINE AMINOTRANSFERASE 63 U/L (12-78); ALBUMIN 2.8 G/DL (3.4-5.0); ALBUMIN/GLOBULIN RATIO 0.7 (1.1-1.5); ALKALINE PHOSPHATASE 51 IU/L (46-116); ANION GAP 11 (8-16); ASPARTATE AMINO TRANSFERASE 25 U/L (10-37); BILIRUBIN,TOTAL 1.4 MG/DL (0.1-1.0); BLOOD UREA NITROGEN 29 MG/DL (7-18); BUN/CREATININE RATIO 23.6 (5.4-32.0); CALCIUM 7.9 MG/DL (8.5-10.1); CHLORIDE 99 MMOL/L (99-107); CREATININE 1.23 MG/DL (0.60-1.10); GLUCOSE 208 MG/DL (70-104); PHOSPHORUS 4.2 MG/DL (2.3-4.5); POTASSIUM 3.4 MMOL/L (3.5-5.1); SODIUM 138 MMOL/L (135-145); TOTAL CARBON DIOXIDE 28.5 MMOL/L (24-32); TOTAL PROTEIN 6.6 G/DL (6.4-8.2); eGFR 60 ML/MIN
[2022-02-14] MEDS: docusate sod 100mg capsule PO SCH ×2 (07:41→20:10)
[2022-02-14] MEDS: levoFLOXACIN-Levaquin 500mg/D5 100 ML IV SCH (08:00)
[2022-02-14] MEDS: methylPREDNISolone sod succ 125mg/2ml vial IV SCH ×2 (09:48→20:09)
[2022-02-14] MEDS: furosemide 40mg/4ml inj IV SCH (09:48)
[2022-02-14] MEDS: folic acid 1mg tablet PO SCH (09:48)
[2022-02-14] MEDS: multivitamins, therapeutics tablet PO SCH (09:49)
[2022-02-14] MEDS: thiamine 100mg tablet PO SCH ×2 (09:49→20:09)
[2022-02-14] MEDS: propranolol 10mg tablet PO SCH ×3 (09:49→20:10)
--- NOTE | 2022-02-14 10:00 | NUR ---
Initial: Pt admit for anemia, to r/o GIB, BLE DVT, acute respiratory failure, and COPD exacerbation. Noted pt with low serum iron and %sat. Pt s/p EGD 02/13 which revealed "antral gastritis and sloughing of the mucosa of the distal esophagus consistent with acute reflux esophagitis which is not a source of bleeding and iron deficiency anemia not well explained" by EGD per MD note. Patient's diet has been advanced from NPO to clear liquids, documented with 100% PO intake first meal. Per progress note pt states he has not had any hematemesis melena or bright red blood per rectum for several days. Recommend advancing to regular diet as medically indicated. Pt receiving routine Thiamine, Folic acid, and MVI for EtOH hx. Pt may benefit from iron replacement given low serum iron, %sat, and MCV. LBM 02/13, documented with copious stool output though receiving routine bowel care and received one time Golytely 02/13 per EMR. Will continue to follow closely and make recommendations as appropriate. Recommendations: 1) Advance to regular diet as medically indicated 2) Continue routine Thiamine, Folic acid, and MVI given EtOH hx 3) Consider iron supplementation in view of low serum iron, %sat, and MCV 4) Bowel care per rx 5) Scaled weight this admit; subsequent weekly scaled weights Addendum: 02/14/22 at [address] Amended: Links added.
--- NOTE | 2022-02-14 10:00 | NUR ---
NURSE REQUESTED PIV OR EXTENDED PIV BECAUSE ON SEVERAL IV ABT AND 'DRIPS'. AFTER ENTERING PT ROOM PT NOT RESPONDING TO VOICE AND TOUCH. RN NOTIFIED AND WENT TO ROOM TO SEE IF STATUS CHANGED. HOWEVER, PT AROUSED AND RESPONDED APPROPRIATELY BUT SLEEPY. EXPLAINED PROCEDURE TO PATIENT AND BEGAN BY CLEANING SITE TO UPPER ARM WITH ALCOHOL SWABS X 3 WHILE EXPLAINING. ATTEMPT TO ACCESS VEIN X ONE AND THE PATIENT YELLED AND JUMPED PULLING OUT THE IV. AGAIN ENCOURAGED THE PATIENT TO STAY AWAKE AND AT LEAST LISTEN TO WHEN I WAS GOING TO INSERT CANNULA, PATIENT AGREEABLE BUT WHEN PUNCTURE PATIENT JUMPED AGAIN GRABBING CATHETER AND PULLING IT OUT AND ACROSS UPPER ARM, THUS NICKING THE SKIN WITH BEVEL AND THEN RAISING HIS ARM TO THREATEN TO HIT. ASSESSED ARM WITH NICKS WITH VERY SCANT BLEEDING NOTED. GATHERED SUPPLIES AND EXITED ROOM. RN NOTIFIED OF PATIENT NOT BEING COOPERATIVE AND THREATENING TO HIT, THUS IV UNSUCCESSFUL. Addendum: 02/14/22 at 1615 by Lidia Clarke RN Amended: Links added.
--- NOTE | 2022-02-14 10:20 | NUR ---
ANDREI REQUESTER iv/EXTENDED piv
[2022-02-14 11:00] VITALS: BP 119/77
--- NOTE | 2022-02-14 13:30 | NUR ---
Pt. has completed the GI prep. He continues to refuse treatments in part. His IV access is limited but He did pull away from the PICC line nurse and Nursing was not able to get adequate Access for antibiotic treatments, therefore all antibiotics have fallen out of schedule. Nursing will continue to encourage him and support beneficial cooperation.
--- NOTE | 2022-02-14 14:57 | NUR ---
Note to Dr. Martinez on missed treatment due to Pt. refusal. PAGER ID: [phone] MESSAGE: Please call Nursing [phone] Pt. Martell Nayely was unable to cooperate with nursing to get the necessary IV access to support multiple antibiotics and continuous treatments. Please advice Emma Madrid RN [phone]
[2022-02-14 15:00] VITALS: BP 138/60
--- NOTE | 2022-02-14 15:59 | NUR ---
Message to Dr. Martinez regarding Seizure activity. PAGER ID: [phone] MESSAGE: Martell Adler [phone] Walked into room to witness Pt. having seizure. Please advise. Thank You Heather Sanches RN [phone]
[2022-02-14] MEDS ORDERED: levetiracetam inj 1,000 MG in normal saline 100ml IV soln 90 ML IV STA (16:27)
[2022-02-14] MEDS ORDERED: normal saline 1000ml 1,000 ML IV SCH (16:30)
--- NOTE | 2022-02-14 16:34 | NUR ---
Pt's says He doesn't have seizures when He is drinking. She said this but was not able to give a brief history.
[2022-02-14 18:00] VITALS: BP 114/64
[2022-02-14] MEDS: divalproex sodium 500mg tablet.DR PO SCH (18:11)
[2022-02-14] MEDS: pantoprazole 40mg Tablet.DR PO SCH (20:10)
[2022-02-14] MEDS: topiramate 100mg tablet PO SCH (20:10)
[2022-02-14 22:00] VITALS: BP 101/49
[2022-02-15 02:00] VITALS: BP 93/50
[2022-02-15] MEDS: ipratropium/albuterol 3ml nebule NEB SCH ×3 (02:55→11:45)
[2022-02-15 06:00] VITALS: BP 101/60
--- NOTE | 2022-02-15 06:22 | NUR ---
Problems reprioritized. Patient report given, questions answered & plan of care reviewed with Emma JEAN-BAPTISTE.
[2022-02-15 07:18] LABS: ALBUMIN 2.4 G/DL (3.4-5.0); ANION GAP 6 (8-16); BLOOD UREA NITROGEN 17 MG/DL (7-18); CALCIUM 7.7 MG/DL (8.5-10.1); CHLORIDE 104 MMOL/L (99-107); GLUCOSE 134 MG/DL (70-104); SODIUM 141 MMOL/L (135-145); TOTAL CARBON DIOXIDE 31.5 MMOL/L (24-32); eGFR 77 ML/MIN
[2022-02-15 07:19] LABS: POTASSIUM 2.9 MMOL/L (3.5-5.1)
[2022-02-15] MEDS: docusate sod 100mg capsule PO SCH (08:00)
--- NOTE | 2022-02-15 08:01 | NUR ---
Notification Critical Lab Value K+=2.0 Juan SORIANO Potassium replacement per protocol started
[2022-02-15] MEDS: levoFLOXACIN-Levaquin 500mg/D5 100 ML IV SCH (08:11)
[2022-02-15] MEDS: divalproex sodium 500mg tablet.DR PO SCH (08:11)
[2022-02-15] MEDS: methylPREDNISolone sod succ 125mg/2ml vial IV SCH (08:11)
[2022-02-15] MEDS: multivitamins, therapeutics tablet PO SCH (08:11)
[2022-02-15] MEDS: thiamine 100mg tablet PO SCH (08:12)
[2022-02-15] MEDS: propranolol 10mg tablet PO SCH (08:14)
[2022-02-15] MEDS: folic acid 1mg tablet PO SCH (08:16)
[2022-02-15] MEDS: pantoprazole 40mg Tablet.DR PO SCH (08:16)
[2022-02-15] MEDS: topiramate 100mg tablet PO SCH (08:42)
--- NOTE | 2022-02-15 10:37 | NUR ---
Took over pt care over from Ceci JEAN-BAPTISTE.
[2022-02-15] MEDS ORDERED: DIVA500T2 PO (10:49)
[2022-02-15] MEDS ORDERED: KEP500T PO (10:49)
[2022-02-15] MEDS ORDERED: LEVO500T90 PO (10:54)
[2022-02-15 11:23] LABS: ALANINE AMINOTRANSFERASE 50 U/L (12-78); ALBUMIN/GLOBULIN RATIO 0.7 (1.1-1.5); ALKALINE PHOSPHATASE 42 IU/L (46-116); ASPARTATE AMINO TRANSFERASE 18 U/L (10-37); BILIRUBIN,TOTAL 1.2 MG/DL (0.1-1.0); TOTAL PROTEIN 5.7 G/DL (6.4-8.2)
[2022-02-15 11:29] LABS: HEMATOCRIT 32.2 % (42.0-52.0); HEMOGLOBIN 9.3 g/dl (14.0-17.9); MEAN CORPUSCULAR HEMOGLOBIN 18.6 PG (27.0-31.0); MEAN CORPUSCULAR HGB CONC 28.9 g/dL (33.0-36.5); MEAN CORPUSCULAR VOLUME 64.5 FL (78-98); MEAN PLATELET VOLUME 8.5 FL (7.4-10.4); PLATELET COUNT 249 X10'3 (140-440); RED BLOOD COUNT 4.99 X10'6 (4.70-6.10); RED CELL DISTRIBUTION WIDTH 39.7 % (11.5-14.5)
[2022-02-15 12:03] LABS: ANISOCYTOSIS 3+; HYPOCHROMASIA 2+; MICROCYTOSIS 2+; NUCLEATED RED BLOOD CELLS 3 /100WBC (0-0); PLATELET ESTIMATE NORMAL; TOTAL CELLS COUNTED 100
[2022-02-15 12:04] LABS: POLYCHROMASIA 1+; SCHISTOCYTES FEW; TARGET CELLS FEW; TEAR DROP CELLS FEW
== END 2022-02-15 13:40 | disposition home or self-care (01) | DRG 720 ==
LOC: ER 23:44 → UNDOADMIN 02-09 02:39 → ED HOLD 02-09 02:39 → EDBEDREQ 02-10 09:42 → EDBEDREQSVC 02-10 10:49 → EDBEDREQ 02-10 10:49 → ICU 2S 02-10 17:33 → PCU 3S 02-11 12:05
PROVIDERS: ADMIT Family Medicine; ATTEND Family Medicine
PROC: B32T1ZZ Computerized Tomography (CT Scan) of Left Pulmonary Artery using Low Osmolar Contrast (ICD-10-PCS; 2022-02-09)
PROC: B3201ZZ Computerized Tomography (CT Scan) of Thoracic Aorta using Low Osmolar Contrast (ICD-10-PCS; 2022-02-09)
PROC: B32S1ZZ Computerized Tomography (CT Scan) of Right Pulmonary Artery using Low Osmolar Contrast (ICD-10-PCS; 2022-02-09)
PROC: 30233N1 Transfusion of Nonautologous Red Blood Cells into Peripheral Vein, Percutaneous Approach (ICD-10-PCS; 2022-02-09)
PROC: 5A09357 Assistance with Respiratory Ventilation, Less than 24 Consecutive Hours, Continuous Positive Airway Pressure (ICD-10-PCS; 2022-02-10)
PROC: BW211ZZ Computerized Tomography (CT Scan) of Abdomen and Pelvis using Low Osmolar Contrast (ICD-10-PCS; 2022-02-10)
PROC: 06H03DZ Insertion of Intraluminal Device into Inferior Vena Cava, Percutaneous Approach (ICD-10-PCS; principal; 2022-02-11)
PROC: B5191ZZ Fluoroscopy of Inferior Vena Cava using Low Osmolar Contrast (ICD-10-PCS; 2022-02-11)
PROC: 0DB68ZX Excision of Stomach, Via Natural or Artificial Opening Endoscopic, Diagnostic (ICD-10-PCS; 2022-02-13)
DX: A41.9 Sepsis, unspecified organism (principal); J96.01 Acute respiratory failure with hypoxia; N17.0 Acute kidney failure with tubular necrosis; I50.33 Acute on chronic diastolic (congestive) heart failure; E87.2 Acidosis; J18.9 Pneumonia, unspecified organism; I82.412 Acute embolism and thrombosis of left femoral vein; I11.0 Hypertensive heart disease with heart failure; I82.431 Acute embolism and thrombosis of right popliteal vein; I82.531 Chronic embolism and thrombosis of right popliteal vein; I82.441 Acute embolism and thrombosis of right tibial vein; I82.451 Acute embolism and thrombosis of right peroneal vein; Z20.822 Contact with and (suspected) exposure to COVID-19; J44.0 Chronic obstructive pulmonary disease with (acute) lower respiratory infection; K92.2 Gastrointestinal hemorrhage, unspecified; D50.9 Iron deficiency anemia, unspecified; E78.5 Hyperlipidemia, unspecified; K70.10 Alcoholic hepatitis without ascites; F10.20 Alcohol dependence, uncomplicated; I82.541 Chronic embolism and thrombosis of right tibial vein; I82.551 Chronic embolism and thrombosis of right peroneal vein; E87.6 Hypokalemia; F17.210 Nicotine dependence, cigarettes, uncomplicated; G40.909 Epilepsy, unspecified, not intractable, without status epilepticus; K21.00 Gastro-esophageal reflux disease with esophagitis, without bleeding; K29.70 Gastritis, unspecified, without bleeding; Z82.49 Family history of ischemic heart disease and other diseases of the circulatory system; Z83.3 Family history of diabetes mellitus; Z86.711 Personal history of pulmonary embolism; Z91.19 Patient's noncompliance with other medical treatment and regimen; Z88.0 Allergy status to penicillin; Z88.8 Allergy status to other drugs, medicaments and biological substances; Z79.899 Other long term (current) drug therapy; Z71.41 Alcohol abuse counseling and surveillance of alcoholic
CPT/HCPCS: 36415; 36430; 36600; 37191; 43239; 71045; 71275; 74018; 74177; 80053; 80061; 80202; 80305; 81003; 82272; 82550; 82803; 82948; 83036; 83540; 83550; 83605; 83735; 83880; 84100; 84145; 84484; 85007; 85008; 85018; 85025; 85027; 85045; 85610; 85730; 86703; 86885; 86900; 86901; 86920; 87040; 87081; 87635; 92508; 92616; 93005; 93306; 93970; 94640; 94660; 94760; 96374; 97116; 97161; 97530; 99152; 99285; A4620; A6213; C1769; C1880; C1894; C9113; G0378; J0692; J1644; J1940; J1953; J1956; J2250; J2270; J2354; J2930; J3010; J3370; J3490; J7030; J7050; J7070; P9016; Q0163; Q9967